=== PATIENT | male | born 1950 | race Caucasian/White ===

== ENCOUNTER 2022-03-02 16:57 | Emergency (ER) | payer OTHER, SELFPAY ==
[2022-03-02] VITALS (9 sets, daily range): BP systolic 112–140; BP diastolic 55–84; PULSE 85–113; RESP 14–21; TEMP 36.6–36.9; O2SAT 98–100; BMI 26.1
--- NOTE | 2022-03-02 17:27 | PC.NURSE ---
Pt coming in from [facility] with abnormal H&H, pt is pleasant and slightly confused. No apparent distress at this time
--- NOTE | 2022-03-02 17:32 | ED.GENADULT ---
HPI - General Adult General Chief complaint: Recheck/Abnormal Lab/Rx Stated complaint: Abnormal H and H Time Seen by Provider: 03/02/22 17:19 Source: patient and RN notes reviewed Mode of arrival: EMS Limitations: no limitations History of Present Illness HPI narrative: Patient is 72 years old with history of metabolic encephalopathy hyperlipidemia anxiety disorder, diabetes mellitus [facility] for hemoglobin of 6.2. Patient hemoglobin was 7.8 on 02/23 and 6.7 on 02/27 no history of any GI bleed patient vitals and [facility] were blood pressure 111/68 pulse rate 113 saturating 99% on room air patient is confused at baseline denies any bleeding no chest pain no abdominal pain no shortness of breath Related Data Allergies Allergy/AdvReac Type Severity Reaction Status Date / Time No Known Allergies Allergy Verified 03/02/22 17:35 Review of Systems Review of Systems: Yes all other systems are reviewed and are negative PMFSH Social History Social History Advance Directives: No Advance Directives Information Provided: No Physical Exam ED Vital Signs: Vital Signs - 24 hr 03/02/22 17:05 03/02/22 19:03 03/02/22 20:08 Temperature 98.1 F 97.8 F Pulse Rate 99 99 97 Respiratory Rate 15 16 15 Blood Pressure 130/55 L 138/84 128/78 Pulse Oximetry 98 98 100 Oxygen Delivery Method Room Air Room Air Room Air 03/02/22 20:12 03/02/22 20:29 03/02/22 22:00 Temperature 98.1 F 97.8 F 98.2 F Pulse Rate 97 94 85 Respiratory Rate 17 15 16 Blood Pressure 125/72 112/61 128/77 Pulse Oximetry 99 Oxygen Delivery Method Room Air 03/02/22 22:49 03/02/22 23:09 03/02/22 23:26 Temperature 98.4 F 98.5 F 98.5 F Pulse Rate 92 100 100 Respiratory Rate 14 21 H 18 Blood Pressure 124/64 131/64 140/83 H Pulse Oximetry Oxygen Delivery Method BMI result Body Mass Index 26.1 Appearance: Alert. Oriented X2. No acute distress. Eyes: PERRLA pallor++ ENT: Pharynx normal. Oral Mucosa moist Neck: Normal inspection. Neck supple. CVS: Normal heart rate and rhythm. Pulses normal. Respiratory: No respiratory distress. Equal air entry bilateral, no wheezing/rales/rhonchi Abdomen: Soft and nontender. Bowel sounds are present, no mass palpable, no CVA tenderness Skin: Skin warm and dry. pale. Normal skin turgor. Extremities: No lower extremity edema. No calf tenderness Neuro: Oriented X 2. No motor deficit. No sensory deficit.No cerebellar signs , cranial nerves II-XII intact Medications Administered Discontinued Medications Generic Name Dose Route Start Last Admin Trade Name Freq PRN Reason Stop Dose Admin Furosemide 20 mg 03/02/22 23:27 03/02/22 23:47 Furosemide 20 Mg/2 Ml Vial IVPUSH 03/02/22 23:28 20 mg ONCE ONE Administration Protocol Medical Decision Making Medical Decision Making [facility] Narrative: Patient has CKD baseline creatinine 2.18 on 02/23/2022 at [facility] comes with severe anemia likely from chronic kidney disease guaiac was negative patient received 2 units of blood were transfused for the patient back [facility] advised to follow with ssrs report developer and PCP Lab Data MDM Lab Attestation statement: I reviewed the patient's lab results. 03/02/22 18:04 03/02/22 18:04 Labs: Lab Results 03/02/22 03/02/22 03/02/22 Range/Units 18:04 18:04 18:04 WBC 14.0 H (4.8-10.8) X10*3/uL RBC 2.76 L (4.60-5.80) X10*6/uL Hgb 6.9 L* (14.0-18.0) g/dl Hct 23.2 L (42.0-52.0) % MCV 84.1 (80.0-98.0) fL MCH 25.0 L (27.0-33.0) pg MCHC 29.7 L (31.0-36.0) g/dl RDW 17.1 H (11.0-16.0) % Plt Count 342 (160-400) X10*3/uL MPV 9.6 (9.4-12.4) fL Immature Gran % (Auto) 4.9 H (0.0-0.4) % Neut % (Auto) 74.4 H (45-73) % Lymph % (Auto) 11.7 L (20-40) % [place] % (Auto) 8.1 (2-11) % Eos % (Auto) 0.6 (0-4) % Baso % (Auto) 0.3 (0-2) % Lymph # (Auto) 1.6 (1.2-4.9) X10*3/uL [place] # (Auto) 1.1 (0.1-1.2) X10*3/uL Eos # (Auto) 0.1 (0.0-0.4) X10*3/uL Baso # (Auto) 0.0 (0.0-0.2) X10*3/uL Abs Immat Gran (auto) 0.69 H (0.00-0.03) X10*3/uL Absolute Neuts (auto) 10.4 H (2.0-8.3) x10*3/uL Absolute Nucleated RBC 0.000 (0.0-0.012) X10*3/uL Nucleated RBC % (auto) 0.0 (0.0-0.2) /100WBC PT 13.9 H (10.0-13.1) SEC INR 1.2 H (0.9-1.1) Sodium 137 (135-145) mmol/L Potassium 4.2 (3.3-5.1) mmol/L Chloride 101 (96-108) mmol/L Carbon Dioxide 26 (22-29) mmol/L Anion Gap 14 (12-20) BUN 40 H (9-16) mg/dL Creatinine 2.92 H (0.5-1.4) mg/dL Estim Creat Clear Calc 26.9 Estimated GFR 21 Random Glucose 116 H (60-115) mg/dL Calcium 8.6 (8.4-10.2) mg/dL Total Bilirubin 0.2 (0.0-1.0) mg/dL AST 10 (5-37) U/L ALT 6 (0-40) U/L Alkaline Phosphatase 60 (39-117) U/L Total Protein 8.2 H (6.5-8.0) g/dL Albumin 2.6 L (3.5-5.0) g/dL Stool Occult Blood (NEGATIVE) COVID-19 ([facility]) (Negative) COVID-19 Clin Com Blood Type Antibody Screen Crossmatch 03/02/22 03/02/22 03/02/22 Range/Units 18:04 18:04 19:42 WBC (4.8-10.8) X10*3/uL RBC (4.60-5.80) X10*6/uL Hgb (14.0-18.0) g/dl Hct (42.0-52.0) % MCV (80.0-98.0) fL MCH (27.0-33.0) pg MCHC (31.0-36.0) g/dl RDW (11.0-16.0) % Plt Count (160-400) X10*3/uL MPV (9.4-12.4) fL Immature Gran % (Auto) (0.0-0.4) % Neut % (Auto) (45-73) % Lymph % (Auto) (20-40) % [place] % (Auto) (2-11) % Eos % (Auto) (0-4) % Baso % (Auto) (0-2) % Lymph # (Auto) (1.2-4.9) X10*3/uL [place] # (Auto) (0.1-1.2) X10*3/uL Eos # (Auto) (0.0-0.4) X10*3/uL Baso # (Auto) (0.0-0.2) X10*3/uL Abs Immat Gran (auto) (0.00-0.03) X10*3/uL Absolute Neuts (auto) (2.0-8.3) x10*3/uL Absolute Nucleated RBC (0.0-0.012) X10*3/uL Nucleated RBC % (auto) (0.0-0.2) /100WBC PT (10.0-13.1) SEC INR (0.9-1.1) Sodium (135-145) mmol/L Potassium (3.3-5.1) mmol/L Chloride (96-108) mmol/L Carbon Dioxide (22-29) mmol/L Anion Gap (12-20) BUN (9-16) mg/dL Creatinine (0.5-1.4) mg/dL Estim Creat Clear Calc Estimated GFR Random Glucose (60-115) mg/dL Calcium (8.4-10.2) mg/dL Total Bilirubin (0.0-1.0) mg/dL AST (5-37) U/L ALT (0-40) U/L Alkaline Phosphatase (39-117) U/L Total Protein (6.5-8.0) g/dL Albumin (3.5-5.0) g/dL Stool Occult Blood NEGATIVE (NEGATIVE) COVID-19 ([facility]) Negative (Negative) COVID-19 Clin Com See Note Blood Type O Negative Antibody Screen NEGATIVE Crossmatch See Detail Discharge Plan Discharge Clinical Impression: Anemia due to chronic kidney disease Patient Disposition: Xfer [facility] Transfer Details: Patient received 2 units of blood transfusion in the ER advised to follow up with ssrs report developer for chronic anemia likely from kidney disease stool was negative for blood Instructions: Chronic Kidney Disease (ED), Anemia (ED) Additional Instructions: See ssrs report developer and PCP for further management
--- NOTE | 2022-03-02 17:42 | ECG_ITS ---
Test Reason : ABNORMAL LABS Blood Pressure : / mmHG Vent. Rate : 095 BPM Atrial Rate : 095 BPM P-R Int : 170 ms QRS Dur : 100 ms QT Int : 346 ms P-R-T Axes : 034 -22 047 degrees QTc Int : 434 ms Normal sinus rhythm Possible Anterolateral infarct , age undetermined Abnormal ECG No previous ECGs available Referred By: Lele Yung Electronically Signed By:Raul Johnson
[2022-03-02 18:12] LABS: MANUAL DIFF FLAG NO
[2022-03-02 18:15] LABS: Basophils Percent Auto 0.3 % (0-2); Eosinophils Absolute Auto 0.1 X10*3/uL (0.0-0.4); Eosinophils Percent Auto 0.6 % (0-4); Hematocrit 23.2 % (42.0-52.0); Imm Gran Abs Auto 0.69 X10*3/uL (0.00-0.03); Imm Gran Pct Auto 4.9 % (0.0-0.4); Lymphocytes Absolute Auto 1.6 X10*3/uL (1.2-4.9); Lymphocytes Percent Auto 11.7 % (20-40); Mean Corpuscular HGB Conc 29.7 g/dl (31.0-36.0); Mean Corpuscular Volume 84.1 fL (80.0-98.0); Mean Platelet Volume 9.6 fL (9.4-12.4); Monocytes Absolute Auto 1.1 X10*3/uL (0.1-1.2); Monocytes Percent Auto 8.1 % (2-11); Neutrophils Absolute Auto 10.4 x10*3/uL (2.0-8.3); Neutrophils Percent Auto 74.4 % (45-73); Platelet Count 342 X10*3/uL (160-400); Red Blood Count 2.76 X10*6/uL (4.60-5.80); Red Cell Distribution Width 17.1 % (11.0-16.0)
[2022-03-02 18:18] LABS: Hemoglobin 6.9 g/dl (14.0-18.0)
[2022-03-02 18:20] LABS: INTERNATIONAL NORM RATIO 1.2 (0.9-1.1); Prothrombin Time 13.9 SEC (10.0-13.1)
[2022-03-02 18:27] LABS: COVID-19 Test Negative (Negative); IDNOW Serial# BCCEAD1C
[2022-03-02 18:29] LABS: Alanine Aminotransferase 6 U/L (0-40); Albumin Level 2.6 g/dL (3.5-5.0); Alkaline Phosphatase 60 U/L (39-117); Anion Gap 14 (12-20); Aspartate Amino Transferase 10 U/L (5-37); Bilirubin Total 0.2 mg/dL (0.0-1.0); Blood Urea Nitrogen 40 mg/dL (9-16); Calcium 8.6 mg/dL (8.4-10.2); Carbon Dioxide 26 mmol/L (22-29); Chloride 101 mmol/L (96-108); Creatinine Clr Calc Pharmacy 26.9; Estimated Glomerular Filt Rate 21; Glucose Random 116 mg/dL (60-115); Potassium 4.2 mmol/L (3.3-5.1); Sodium 137 mmol/L (135-145); Total Protein 8.2 g/dL (6.5-8.0)
--- NOTE | 2022-03-02 19:16 | MHC.EDTECH ---
THIS PCT ASSUMED CARE OF PT AT 1900 ,PT PINK BLOOD BAND TUBE DRAWN AND SEND TO LAB ,VITALS SIGN TAKEN ,EKG DONE ,PT WAS CHANGE INTO HOSPITAL ATTIRE BY THIS PCT ,WARM BLANKET GIVEN ,PT SAID HIS MOUTRH WAS DRIED ,I RN ASKED RN ELAINA IF IF I CAN GET PT EYE CHIPS ,WAS TOLD YES ,PT RESTING WATCHING TELEVISION AT THIS TIME ,PT CALL [facility] WITHIN REACH .
[2022-03-02 19:50] LABS: OBS Int Ctl Valid YES; OBS1 NEGATIVE (NEGATIVE)
--- NOTE | 2022-03-02 20:21 | PC.NURSE ---
blood transfusion started, pt tolerating well at this time, no apparent distress.
--- NOTE | 2022-03-02 23:37 | MHC.EDTECH ---
PT RANG CALL [facility] ,,BECAUSE HE NEEDED TO HAVE A BOWEL MOVEMENT ,BED PANS GIVEN ,PT HAD NO BOWEL MOVEMENT ,BUT HAD AN INCONTINENT EPISODE OF URINE ,CARE GIVEN AND BEDDING CHANGE ,PT WAS GIVEN A CUP OF WATER ,WARM BLANKET GIVEN ,PT REPOSITION ,CALL [facility] WITHIN REACH ,PT WATCHING TELEVISION .
[2022-03-02] MEDS: Furosemide 20 MG/2 ML VIAL IVPUSH (23:47)
--- NOTE | 2022-03-03 00:52 | PC.NURSE ---
This RN called [facility] to get pts most recent creatinine levels to ensure pt is not trending in negative direction, results were given to Dr. Nagy
--- NOTE | 2022-03-03 01:29 | PC.NURSE ---
pt tolerated both blood transfusions well with no issue. Pt [facility]
[2022-03-03 01:31] VITALS: BP 134/88; PULSE 108; RESP 16; TEMP 36.9
[2022-03-03 01:49] VITALS: BP 135/66; PULSE 99; RESP 16; TEMP 36.9; O2SAT 97
== END 2022-03-03 02:10 | disposition skilled nursing facility (03) ==
PROVIDERS: Emergency Provider Internal Medicine; PCP Internal Medicine
DX: E11.22 Type 2 diabetes mellitus with diabetic chronic kidney disease (principal); I12.9 Hypertensive chronic kidney disease with stage 1 through stage 4 chronic kidney disease, or unspecified chronic kidney disease; N18.9 Chronic kidney disease, unspecified; D63.1 Anemia in chronic kidney disease; Z20.822 Contact with and (suspected) exposure to COVID-19
CPT/HCPCS: 36430; 80053; 82272; 85025; 85610; 86850; 86900; 86901; 86923; 87635; 93005; 96374; 99284; 99285; J1940; P9016